=== PATIENT | female | born 1990 | race Caucasian/White ===

== ENCOUNTER 2023-02-21 15:07 | Emergency (ER) | payer OTHER ==
[2023-02-21 15:20] VITALS: BP 99/63; PULSE 72; RESP 18; TEMP 98.2; BMI 24.9
[2023-02-21] MEDS ORDERED: IBUPROFEN 400 MG TABLET (FP) PO ONE ×2 (16:50→17:06)
== END 2023-02-21 17:20 | disposition home or self-care (01) ==
LOC: JERFT 15:07
DX: S99.911A Unspecified injury of right ankle, initial encounter (principal); R22.41 Localized swelling, mass and lump, right lower limb; X50.1XXA Overexertion from prolonged static or awkward postures, initial encounter; Y93.68 Activity, volleyball (beach) (court)
CPT/HCPCS: 73610-TC-RT-FY; 73630-TC-RT-FY; 99283-25